=== PATIENT | male | born 1965 | race Caucasian/White ===

== ENCOUNTER 2017-07-10 13:00 | Emergency (ER) | payer SELFPAY ==
[~2017-07-10 13:00] MED LIST: AMLODIPINE2.5 MG PO; ASPIRIN LOW DOS81 M2 PO; AZITHROMYCIN250 MG PO; LIPITOR40 MG PO; LORTAB 10 OR; NO MEDS; PERCOCET 5/325M1 TAB PO; PRILOSEC40 MG PO; PROTONIX40 MG PO; TRIMOX500 MG PO
== END 2017-07-10 13:13 | disposition left against medical advice (07) | DRG 951 ==
LOC: ED 13:00 → LWOBS 13:13
DX: Z91.19 Patient's noncompliance with other medical treatment and regimen (principal)

== ENCOUNTER 2018-07-20 14:56 | Emergency (ER) | payer SELFPAY ==
[~2018-07-20] VITALS: Ht 180.3 cm; Wt 72.7 kg
[2018-07-20] MEDS ORDERED: PREDNISONE50 MG PO (15:53)
[2018-07-20 15:55] VITALS: BP 134/96
== END 2018-07-20 16:02 | disposition home or self-care (01) | DRG 552 ==
LOC: ED 14:56
DX: M54.42 Lumbago with sciatica, left side (principal); F17.210 Nicotine dependence, cigarettes, uncomplicated

== ENCOUNTER 2019-02-26 10:58 | Emergency (ER) | payer SELFPAY ==
[~2019-02-26] VITALS: Ht 180.3 cm; Wt 81.8 kg
[~2019-02-26 10:58] MED LIST changes: +PREDNISONE50 MG PO
[2019-02-26] MEDS ORDERED: PREDNISONE50 MG PO (11:42)
[2019-02-26 12:19] VITALS: BP 132/96
== END 2019-02-26 12:19 | disposition home or self-care (01) | DRG 74 ==
LOC: ED 10:58
DX: M79.2 Neuralgia and neuritis, unspecified (principal); M54.5 Low back pain

== ENCOUNTER 2019-05-03 10:43 | Emergency (ER) | payer OTHER ==
[~2019-05-03] VITALS: Ht 180.3 cm; Wt 75.0 kg
[2019-05-03] MEDS ORDERED: LORTAB 1010 MG PO (11:20)
[2019-05-03] MEDS ORDERED: MEDDOSEPAK PO (11:20)
[2019-05-03] MEDS ORDERED: FLEXERIL PO (11:20)
[2019-05-03] MEDS ORDERED: ULTRAM50 M1 PO (11:26)
[2019-05-03 11:40] VITALS: BP 139/99
== END 2019-05-03 11:40 | disposition home or self-care (01) ==
LOC: ED 10:43
DX: M54.42 Lumbago with sciatica, left side (principal); F17.210 Nicotine dependence, cigarettes, uncomplicated

== ENCOUNTER 2019-07-02 16:23 | Emergency (ER) | payer OTHER ==
[~2019-07-02] VITALS: Ht 180.3 cm; Wt 80.0 kg
[~2019-07-02 16:23] MED LIST changes: +FLEXERIL PO; +LORTAB 1010 MG PO; +MEDDOSEPAK PO; +ULTRAM50 M1 PO
[2019-07-02] MEDS ORDERED: PAIN RELIEF EX500 M1 PO (17:18)
[2019-07-02] MEDS ORDERED: CYCLOBENZAPR5 MG PO (17:40)
[2019-07-02] MEDS ORDERED: PREDNISONE50 MG PO (17:40)
[2019-07-02 18:29] VITALS: BP 131/65
== END 2019-07-02 18:29 | disposition home or self-care (01) ==
LOC: ED 16:23
DX: M54.5 Low back pain (principal); F17.200 Nicotine dependence, unspecified, uncomplicated

== ENCOUNTER 2019-10-14 | Emergency (ER) | payer OTHER ==
[~2019-10-14] MED LIST changes: +CYCLOBENZAPR5 MG PO; +PAIN RELIEF EX500 M1 PO
[2019-10-14 13:01] LABS: HEMATOCRIT 41.9 % (39.0-50.0); HEMOGLOBIN 15.4 g/dl (14.0-18.0); IMMATURE GRANULOCYTES 0.3 % (0.0-5.0); MEAN CORPUSCULAR HGB 32.7 pG CALC (26.0-32.0); MEAN CORPUSCULAR HGB CONC 36.8 g/L CALC (32.0-36.0); NEUT# 11.34 thou/uL (1.82-7.42); RED BLOOD COUNT 4.71 mill/uL (4.70-6.10); RED CELL DISTRI WIDTH 11.8 % (11.5-15.5)
[2019-10-14 13:15] LABS: ALBUMIN 4.7 g/dL (3.2-5.0); ALKALINE PHOSPHATASE 51 u/l (38-126); ANION GAP 15 (6-22 (CALC)); BILIRUBIN, TOTAL 0.7 mg/dL (0.0-1.4); BUN 18 mg/dL (9-20); BUN/CREATININE RATIO 19 (12-20 (CALC)); CARBON DIOXIDE 25 mmol/l (22-30); CHLORIDE 102 mmol/l (95-108); GFR > 60 ML/MIN (>=60 (CALC)); GFR FOR AFR.AMER. > 60 ML/MIN (>=60 (CALC)); POTASSIUM 4.3 mmol/l (3.5-5.1); SGOT/AST 29 u/l (17-59); SODIUM 137 mmol/l (137-146); TOTAL PROTEIN 7.8 g/dL (6.3-8.2)
[2019-10-14 13:27] LABS: MYOGLOBIN 37 ng/mL (0 - 121)
[2019-10-14 14:52] LABS: URINE BILIRUBIN - DIPSTICK NEGATIVE (NEGATIVE); URINE BLOOD DIPSTICK NEGATIVE (NEGATIVE); URINE COLOR YELLOW; URINE GLUCOSE - DIPSTICK NEGATIVE (NEGATIVE); URINE KETONE NEGATIVE (NEGATIVE); URINE LEUK ESTERASE NEGATIVE (NEGATIVE); URINE NITRITE - DIPSTICK NEGATIVE (Negative); URINE PH 5.5 (4.5-8.0); URINE PROTEIN - DIPSTICK NEGATIVE (NEG-TRACE); URINE SPECIFIC GRAVITY 1.025; URINE UROBILINOGEN - DIPSTICK 0.2 E.U./dL (0.2)
[2019-10-14 14:57] LABS: BARBITURATES NEGATIVE (NEGATIVE); COCAINE NEGATIVE (NEGATIVE); METHADONE NEGATIVE (NEGATIVE); OXCYCODONE NEGATIVE (NEGATIVE); TETRAHYDROCANNABIONOL POSITIVE (NEGATIVE); TRICYLIC ANTIDEPRESSANTS NEGATIVE (NEGATIVE)
== END 2019-10-14 15:35 | disposition home or self-care (01) ==
PROVIDERS: Family Medicine
DX: R42 Dizziness and giddiness (principal); F17.210 Nicotine dependence, cigarettes, uncomplicated; R20.2 Paresthesia of skin; R55 Syncope and collapse

== ENCOUNTER 2020-03-24 12:52 | Emergency (ER) | payer OTHER ==
[~2020-03-24] VITALS: Ht 180.3 cm; Wt 78.0 kg
[2020-03-24] MEDS ORDERED: DECADRON4 MG PO (13:21)
[2020-03-24] MEDS ORDERED: NO HOME MEDS (13:50)
[2020-03-24 13:51] VITALS: BP 138/89
== END 2020-03-24 13:51 | disposition home or self-care (01) ==
LOC: ED 12:52
DX: M54.5 Low back pain (principal); F17.200 Nicotine dependence, unspecified, uncomplicated

== ENCOUNTER 2020-11-15 10:15 | Emergency (ER) | payer OTHER ==
[~2020-11-15] VITALS: Ht 180.3 cm; Wt 80.0 kg
[~2020-11-15 10:15] MED LIST changes: +DECADRON4 MG PO; +NO HOME MEDS
[2020-11-15 12:25] VITALS: BP 126/75
== END 2020-11-15 12:25 | disposition home or self-care (01) ==
LOC: ED 10:15
DX: U07.1 COVID-19 (principal); R52 Pain, unspecified; F17.200 Nicotine dependence, unspecified, uncomplicated

== ENCOUNTER 2022-03-16 14:15 | Emergency (ER) | payer OTHER ==
[~2022-03-16] VITALS: Ht 180.3 cm; Wt 79.5 kg
[2022-03-16 14:19] VITALS: BP 148/106
[2022-03-16 14:31] VITALS: BP 133/101
[2022-03-16 14:45] LABS: HEMOGLOBIN 16.2 g/dl (14.0-18.0); IMMATURE GRANULOCYTES 0.1 % (0.0-5.0); MEAN CELL VOLUME 92.6 fL CALC (80.0-100.0); MEAN CORPUSCULAR HGB 32.6 pG CALC (26.0-32.0); MEAN CORPUSCULAR HGB CONC 35.2 g/dL CAL (32.0-36.0); NEUT# 8.25 thou/uL (1.82-7.42); RED BLOOD COUNT 4.97 mill/uL (4.70-6.10); RED CELL DISTRI WIDTH 11.9 % (11.5-15.5)
[2022-03-16 15:01] LABS: ALBUMIN 4.5 g/dL (3.2-5.0); ALKALINE PHOSPHATASE 55 u/l (38-126); BILIRUBIN, TOTAL 0.5 mg/dL (0.0-1.4); BUN 9 mg/dL (9-20); BUN/CREATININE RATIO 8 (12-20 (CALC)); CHLORIDE 108 mmol/l (95-108); CREATININE 1.2 mg/dL (0.7-1.3); ETHYL ALCOHOL 148 mg/dl (0-30); GFR FOR AFR.AMER. > 60 ML/MIN (>=60 (CALC)); GFR OTHER RACES > 60 ML/MIN (>=60 (CALC)); POTASSIUM 3.8 mmol/l (3.5-5.1); SODIUM 140 mmol/l (137-146)
[2022-03-16 15:09] LABS: ANION GAP 18 (6-22 (CALC)); CARBON DIOXIDE 18 mmol/l (22-30); SGOT/AST 57 u/l (17-59)
[2022-03-16 15:25] VITALS: BP 113/80
[2022-03-16 15:30] VITALS: BP 140/99
[2022-03-16 16:00] VITALS: BP 128/89
[2022-03-16] MEDS ORDERED: OMNI-PAC300 MG PO ×2 (16:17→16:19)
[2022-03-16 16:22] VITALS: BP 128/89
== END 2022-03-16 16:29 | disposition home or self-care (01) ==
LOC: ED 14:15
PROVIDERS: Family Medicine
DX: L03.115 Cellulitis of right lower limb (principal); F17.200 Nicotine dependence, unspecified, uncomplicated